=== PATIENT | female | born 1990 | race Caucasian/White ===

== ENCOUNTER → 2016-05-07 16:10 | Outpatient (CLI) | payer MEDICAID ==
[~2016-05-07 16:10] MED LIST: IBUPROFEN600 MG PO; PERCOCET 5-3251 TAB PO; PRENATAL COMPLE1 TAB PO
[2016-06-16 17:50] VITALS: BMI 40.7
== END | disposition home or self-care (01) ==
LOC: D.LDO 16:10
DX: Z34.83 Encounter for supervision of other normal pregnancy, third trimester (principal); Z3A.34 34 weeks gestation of pregnancy; R10.10 Upper abdominal pain, unspecified

== ENCOUNTER → 2016-06-13 12:55 | Outpatient (CLI) | payer MEDICAID ==
[2016-06-16 17:50] VITALS: BMI 40.7
== END | disposition home or self-care (01) ==
LOC: D.LDO 12:55
DX: Z34.93 Encounter for supervision of normal pregnancy, unspecified, third trimester (principal); Z3A.40 40 weeks gestation of pregnancy

== ENCOUNTER 2016-06-16 16:17 | Inpatient (IN) | payer MEDICAID ==
[~2016-06-16] VITALS: Ht 162.6 cm; Wt 107.5 kg
[2016-06-16 17:10] LABS: APPEARANCE HAZY (CLEAR); BILIRUBIN NEGATIVE (NEGATIVE); COLOR YELLOW (YELLOW); GLUCOSE NEGATIVE (NEGATIVE); KETONE NEGATIVE (NEGATIVE); LEUKOCYTE ESTERASE 1+ (NEGATIVE); NITRITE NEGATIVE (NEGATIVE); PROTEIN NEGATIVE (NEGATIVE); RED CELLS - URINE 0-5 /hpf (0-5); SPECIFIC GRAVITY 1.015 (1.005-1.020); UROBILINOGEN NORMAL (NORMAL)
[2016-06-16 17:11] LABS: BACTERIA MODERATE /hpf (NONE SEEN); MUCUS <1+ /lpf (NONE SEEN)
[2016-06-16] MEDS ORDERED: PRENATAL COMPLE1 TAB PO (17:49)
[2016-06-16 17:50] VITALS: BP 135/69; Ht 162.6 cm; Wt 107.5 kg
[2016-06-16 18:11] LABS: HEMATOCRIT 40.6 % (36.0-48.0); HEMOGLOBIN 13.8 g/dL (12-16); MCH 29.6 pg (26.0-34.0); MCV 86.9 fL (80.0-100.0); RBC 4.67 10x6/uL (4.00-5.40); WBC 10.5 10x3/uL (4.8-10.8)
--- NOTE | 2016-06-17 01:00 | NUR ---
RECEIVED PT VIA WC FROM L&D POST NVD PER DR HERRING, PT TO ROOM 1257, TRANSFERS SELF TO BED, PT ORIENTED TO ROOM, BED IN LOW POSITION, SIDE RAILS X 2, CALL LIGHT IN REACH, FAMILY AT BEDSIDE
[2016-06-17 01:30] VITALS: BP 126/78
--- NOTE | 2016-06-17 01:30 | NUR ---
VS OBTAINED, FF, ML, U/1, PT INST ON BETADINE AND WATER, DENIES NEEDS OR PAIN AT THIS TIME, BABY TO ROOM VIA OPEN CRIB CART PER NSY NURSE
--- NOTE | 2016-06-17 02:40 | NUR ---
PT RESTING WITH EYES CLOSED, RESP QUIET, NO DISTRESS NOTED, LEFT UNDISTURBED AT THIS TIME, FAMILY ASLEEP IN ROOM
--- NOTE | 2016-06-17 04:45 | NUR ---
PT RESTING WITH EYES CLOSED, RESP QUIET, NO DISTRESS NOTED, LEFT UNDISTURBED AT THIS TIME, FAMILY ASLEEP AT BEDSIDE
--- NOTE | 2016-06-17 05:30 | NUR ---
PT COTTON SAMPLER LIGHT, PT REPORTS VOIDING BY SELF WITH NO DIFFICULTY, STATES "I DIDN'T KNOW IF YOU NEEDED TO SEE MY PEE", INFORMED PT THAT I DID NOT,ONLY DOROTHY PAD AND INQUIRE ABOUT BLEEDING, PT REPORTS LIGHT BLEEDING AND HAD BEEN WEARING THE SAME PAD SINCE SLEEPING, PT DENIES ANY NEED FOR PAIN MED OR NEEDS AT THIS TIME
--- NOTE | 2016-06-17 07:00 | NUR ---
SHIFT REPORT TO DAY SHIFT
--- NOTE | 2016-06-17 07:40 | OP ---
PATIENT NAME: HAROON WILKERSON MEDICAL RECORD: [id number] :91 LOCATION:[facility] [address] ADMISSION DATE:06/16/16 SURGEON: MELANIE HERRING MD DATE OF OPERATION: 06/16/2016 Delivery Note Spontaneous vaginal delivery of male weighing 7 pounds 0 ounces, 9 and 9 Apgars. No episiotomy. First degree labial laceration not requiring any sutures. Spontaneous delivery of intact-appearing placenta. ESTIMATED BLOOD LOSS: 400 cc. ANESTHESIA: Epidural. COMPLICATIONS: None. TRANSINT:[id number] Voice Confirmation ID: [id number] DOCUMENT ID: [id number] MELANIE HERRING MD at 0740 CC: [id number] DICTATION DATE: 06/16/162154 FIRE SYSTEMS INSPECTOR: 06/17/16 0059 ADM IN [place] [id number] [place] [id number]
--- NOTE | 2016-06-17 07:45 | NUR ---
PT SITTING IN BED. FOB AT BEDSIDE. ASSESSMENT WAS PERFORMED AND DOCUMENTED. S/R UP X 2, BED IN LOWEST POSITION. CALL LIGHT WITHIN REACH. STATES NO FURTHER NEEDS AT THIS TIME. WILL CONTINUE TO MONITOR.
[2016-06-17 07:50] LABS: HEMATOCRIT 33.5 % (36.0-48.0); HEMOGLOBIN 11.3 g/dL (12-16); MCH 29.7 pg (26.0-34.0); MCHC 33.7 g/dL (31.0-37.0); MCV 87.9 fL (80.0-100.0); RBC 3.81 10x6/uL (4.00-5.40); RDW 14.2 % (11.5-14.5); WBC 12.1 10x3/uL (4.8-10.8)
[2016-06-17 08:05] VITALS: BP 127/78
--- NOTE | 2016-06-17 08:45 | NUR ---
PT SITTING IN BED NURSING . FOB AT BEDSIDE. STATES NO NEEDS AT THIS TIME.
--- NOTE | 2016-06-17 09:15 | NUR ---
PT SITTING IN BED WITH INFANT AT BEDSIDE IN OPEN AIR CRIB. PROVIDED FRESH ICE, JUICE AND ICEWATER. STATES PAIN 0 ON NUMERIC SCALE. STATES THAT THERE ARE ONLY "SLIGHT CRAMPS" RIGHT NOW. STATES NO FURTHER NEEDS.
[2016-06-17] MEDS ORDERED: IBUPROFEN600 MG PO (10:03)
[2016-06-17] MEDS ORDERED: PERCOCET 5-3251 TAB PO (10:03)
--- NOTE | 2016-06-17 10:33 | NUR ---
PT SITTING IN BED WITH IN OPEN AIR CRIB AT BEDSIDE. TAUGHT ABOUT KEEPING FUNDUS FIRM BY MASSAGING. DC'd S/L TIP INTACT TOLERATED WITH NO PROBLEMS. DISCUSSED ROOMING IN WITH THE CHANCE OF ROOM CHANGE. CHE GAVE PRESCRIPTIONS AND EXPLAINED THE IMPORTANCE OF GETTING THEM FILLED BEFORE DISCHARGING TO ROOM IN. STATES NO NEEDS AT THIS TIME. WILL CONTINUE TO MONITOR.
--- NOTE | 2016-06-17 12:09 | NUR ---
PT EATING. FAMILY AT BEDSIDE. STATES NO NEEDS AT THIS TIME. WILL CONTINUE TO MONITOR.
--- NOTE | 2016-06-17 14:10 | NUR ---
PT SITTING IN BED. FOB HAS RETURNED WITH THE PRESCRIPTIONS FOR PT TO ROOM IN. PT STATES THAT SHE WOULD LIKE TO GET UP AND WALK AROUND WHEN SHE GETS SETTLED RM 1217. STATES PAIN 0 ON NUMERIC SCALE AND NO NEED FOR PAIN MEDICATIONS. WILL CONTINUE TO MONITOR.
--- NOTE | 2016-06-17 15:29 | NUR ---
CM spoke with nurse Madelin Lyon regarding Smoking Cessation information. Madelin stated nursing would provide patient with this information. CM met with patient and provided requested written information on Living Will / Advance Directives. Informed patient that nursing would provide her with written information on Smoking Cessation. Patient voiced understanding of all information provided. Denied any other needs at this time. CM will continue to follow and assist as needed with DC planning / needs.
--- NOTE | 2016-06-17 16:00 | NUR ---
PT SITTING IN BED WITH INFANT. FOB AND SYBLING EATING OUT TO EAT. SPOKE OF CESSATION OF SMOKING INFORMATION. WILL PROVIDE.
--- NOTE | 2016-06-17 16:30 | NUR ---
PATIENT IS AWARE THAT SHE WILL BE DISCHARGED FROM THE HOSPITAL TODAY BUT WILL BE ROOMING IN. SHE UNDERSTANDS THAT SHE WILL BE MOVED TO ANOTHER ROOM WHERE SHE CAN STAY UNTIL HER INFANT IS RELEASED. SHE DENIES HEAVY BLEEDING, PASSING CLOTS AND UNCONTROLLED PAIN.
--- NOTE | 2016-06-17 16:30 | NUR ---
EMILY IS AWARE THAT SHE WILL BE DISCHARGING HOME TODAY. SHE IS AWARE THAT SHE WILL BE ROOMING IN AND WILL BE MOVED TO ANOTHER ROOM WHERE SHE CAN STAY LONG HER IS INPATIENT. SHE DENIES HEAVY BLEEDING, PASSING CLOTS, AND UNCONTROLLED PAIN.
--- NOTE | 2016-06-17 18:05 | NUR ---
DISCHARGE PAPERS WERE GONE OVER WITH PT AND . STATES UNDERSTANDING. WALKED PT OVER TO ROOM 1217 WHERE SHE WILL BE ROOMING IN.
[2016-06-18 06:13] LABS: RAPID PLASMA REAGIN Non Reactive (Non Reactive)
--- NOTE | 2016-07-04 07:28 | DS ---
PATIENT:HAROON WILKERSON :[birth year] MEDICAL RECORD: [id number] DISCHARGE SUMMARY ADMISSION DATE: 06/16/16 DISCHARGE DATE: 06/17/16 This patient delivered spontaneously vaginally on June 16, male infant weighing 7 pounds, 0 ounces, 9 and 9 Apgars, no episiotomy. First degree labial laceration, not requiring sutures and spontaneous delivery of intact-appearing placenta. ESTIMATED BLOOD LOSS: 400 cc. The patient did well and was discharged home, tolerating regular diet, ambulating without problems on June 17, to return to the office for followup in 4 weeks. TRANSINT:[id number] Voice Confirmation ID: [id number] DOCUMENT ID: [id number] MELANIE HERRING MD at 0728 CC: [id number] DICTATION DATE: 07/03/16 1105 SIGNWRITER: 07/03/16 2104 DIS IN 06/17/16 [place] [address] [place] [address]
== END 2016-06-17 18:05 | disposition home or self-care (01) | DRG 775 ==
LOC: D.LDO 16:17 → D.LD 16:56
PROVIDERS: ADMIT Obstetrics & Gynecology
PROC: 10E0XZZ Delivery of Products of Conception, External Approach (ICD-10-PCS; principal; 2016-06-16)
PROC: 0HQ9XZZ Repair Perineum Skin, External Approach (ICD-10-PCS; 2016-06-16)
DX: O99.824 Streptococcus B carrier state complicating childbirth (principal); Z3A.40 40 weeks gestation of pregnancy; Z37.0 Single live birth; O70.0 First degree perineal laceration during delivery; O99.334 Smoking (tobacco) complicating childbirth

== ENCOUNTER 2016-08-30 07:41 | Emergency (ER) | payer MEDICAID ==
[2016-06-16 17:50] VITALS: BMI 40.7
[2016-08-30 08:23] LABS: BASOPHILS 0.1 % (0-2); EOSINOPHILS 0.2 % (0-7); HEMATOCRIT 44.1 % (36.0-48.0); HEMOGLOBIN 14.7 g/dL (12-16); IMMATURE GRANULOCYTES 0.1 % (0-5); LYMPHOCYTES 13.8 % (15-50); MCH 29.3 pg (26.0-34.0); MCHC 33.3 g/dL (31.0-37.0); MCV 87.8 fL (80.0-100.0); MEAN PLATELET VOLUME 10.1 fL (7.4-10.4); MONOCYTES 3.2 % (2-11); NEUTROPHILS 82.6 % (40-80); RBC 5.02 10x6/uL (4.00-5.40); RDW 12.8 % (11.5-14.5); WBC 9.5 10x3/uL (4.8-10.8)
[2016-08-30 08:28] LABS: PLATELET COUNT 247 10x3/uL (130-400)
[2016-08-30 08:36] LABS: ALBUMIN 3.5 g/dL (3.4-5.0); ALKALINE PHOSPHATASE 78 U/L (46-116); ALT (SGPT) 121 U/L (10-68); CALC OSMOLALITY 280 mosm/kg (275-300); CALCIUM 8.9 mg/dL (8.5-10.1); CARBON DIOXIDE 27.7 mmol/L (21.0-32.0); CHLORIDE - SERUM 107 mmol/L (98-107); CREATININE - SERUM 0.9 mg/dL (0.6-1.3); GLUCOSE 115 mg/dL (74-106); POTASSIUM - SERUM 3.9 mmol/L (3.5-5.1); PROTEIN - SERUM 7.1 g/dL (6.4-8.2); SODIUM 141 mmol/L (136-145); UREA NITROGEN 9 mg/dL (7-18); eGFR NON AFRICAN AMERICAN 81 mL/min (90-120)
[2016-08-30 09:02] LABS: APPEARANCE SLT CLOUDY (CLEAR); BACTERIA MANY /hpf (NONE SEEN); BILIRUBIN NEGATIVE (NEGATIVE); COLOR YELLOW (YELLOW); GLUCOSE NEGATIVE (NEGATIVE); KETONE NEGATIVE (NEGATIVE); LEUKOCYTE ESTERASE 2+ (NEGATIVE); MUCUS <1+ /lpf (NONE SEEN); NITRITE NEGATIVE (NEGATIVE); PROTEIN NEGATIVE (NEGATIVE); RED CELLS - URINE RARE /hpf (0-5); SPECIFIC GRAVITY 1.015 (1.005-1.020); UROBILINOGEN NORMAL (NORMAL); WHITE CELLS - URINE 0-5 /hpf (0-5)
[2016-08-30 09:03] LABS: HCG URINE NEGATIVE (NEGATIVE)
[2016-08-31] MEDS ORDERED: ZOFRAN4 MG PO (00:01)
== END 2016-08-30 09:59 | disposition home or self-care (01) ==
LOC: D.ER 07:41
PROVIDERS: Emergency Medicine
DX: R10.9 Unspecified abdominal pain (principal); R11.10 Vomiting, unspecified

== ENCOUNTER 2016-08-30 16:06 | Observation (INO) | payer MEDICAID ==
[~2016-08-30] VITALS: Ht 160 cm; Wt 95.3 kg
[2016-08-31] MEDS ORDERED: ZOFRAN4 MG PO (00:01)
[2016-08-31 00:04] VITALS: BP 101/56; BMI 37.2
--- NOTE | 2016-08-31 00:16 | NUR ---
RCVD PT VIA W/C FROM ER. PT LYING ON BACK WITH HOB 30 DEGREES. PT DENIES PAIN AT THIS TIME. PT AAOX3. PERRLA. VSS, HR-RRR, PPP, NO EDEMA TO EXTREMIES X4. BOWEL SOUNDS ACTIVE X4 WITH TENDERNESS TO RUQ UPON LIGHT PALPATION. BREATH SOUNDS EVEN AND UNLABORED X2. 20G PIV TO RT WRIST WITH NS RUNNING @ 100ML/HR.ORDERS FOR DILAUDID SURVEILLANCE SENSOR OPERATOR AND ZOFRAN DISCUSSED WITH PT. ADV PT TO LET ME KNOW WHEN SHE STARTS FEELING PAIN AGAIN IN ORDER TO INITIATE SURVEILLANCE SENSOR OPERATOR. PT VERBALIZED UNDERSTANDING. EDU PT ON CLEAR LIQUID DIET. CHICKEN BROTH PROVIDED PER PT REQUEST. ADMIT ASSESSMENT IN [facility] COMPLETED AT THIS TIME. PT DENIES FURTHER NEEDS AND RATES PAIN 0/10 AT THIS TIME. BED LOW, WHEELS LOCKED, CL IN REACH, SIDE RAILS UP X2.
--- NOTE | 2016-08-31 02:23 | NUR ---
CURRENT NS INFUSION COMPLETE. PIV SL AT THIS TIME. PT DENIES PAIN OR NEEDS. ADV PT OF TRANSFER TO WS WITHIN THE NEXT HR. PT VERBALIZED UNDERSTANDING AND IS AGREEABLE. PT DENIES FURTHER NEEDS AT THIS TIME.
--- NOTE | 2016-08-31 03:15 | NUR ---
PT AMB TO ROOM 1217. DENIES PAIN OR NEEDS. ORIENTED TO ROOM. ADV TO CALL ON CL IF PAIN INCREASES FOR AUTOMATIC GLUING MACHINE OPERATOR. PT VERBALIZED UNDERSTANDING.
--- NOTE | 2016-08-31 03:30 | NUR ---
CHILD AND YOUTH PROGRAM ASSISTANT CALLED TO BRING NEXT DOSE OF ZOSYN DUE AT 0500.
--- NOTE | 2016-08-31 07:30 | NUR ---
PT RECEIVED THIS AM LYING IN BED. PT OFFERS NO COMPLAINTS. SHE STATES HER PAIN LEVEL IS ABOUT A 4. SHE HAS A SALINE LOCK TO HER R WRIST WHICH IS PATENT. GEN- AWAKE AND ALERT. LUNGS- CLEAR. HEART- RRR. ABD- SOFT WITH TENDERNESS RUQ. BS + EXT- NO EDEMA. BED IS LOW. SIDE RAILS UP X 2 AND CALL LIGHT IN REACH.
[2016-08-31 07:41] VITALS: BP 99/44
--- NOTE | 2016-08-31 10:01 | NUR ---
PT IS RESTING IN BED. STATES HER PAIN IS STILL ABOUT A 4. DOES NOT WANT PAIN MED AT THIS TIME. HER IV WAS INITIATED AGAIN @75 CC/HR 0.9 % NS. TO HER R WRIST. IV PATENT.
[2016-08-31 10:25] VITALS: Ht 160 cm; Wt 95.3 kg
--- NOTE | 2016-08-31 11:15 | NUR ---
PT IS UP TO TAKE SHOWER. IV WAS SALINE LOCKED AND COVERED WITH A GLOVE AND TAPED. LINENS CHANGED.
--- NOTE | 2016-08-31 11:22 | NUR ---
HER MOTHER STATES THAT PT WANTS TO KEEP HER 2 MONTH OLD SON WITH HER TONIGHT. I TOLD HER THAT THIS WAS NOT ALLOWED DUE TO HOSPITAL POLICY.
--- NOTE | 2016-08-31 11:37 | NUR ---
PT IS OUT OF SHOWER. BACK TO BED. BED IS LOW, SIDE RAILS UP X 2 AND CALL LIGHT IN REACH. SHE IS HOLDING HER 2 MO OLD BABY.
--- NOTE | 2016-08-31 13:01 | NUR ---
PT IS SITTING UP IN BED HOLDING HER 2 MO OLD BABY. SHE OFFERS NO COMPLAINTS. BED IS LOW, SIDE RAILS UP X 2 AND CALL LIGHT IN REACH.
[2016-08-31 13:54] LABS: BASOPHILS 0.2 % (0-2); HEMOGLOBIN 12.9 g/dL (12-16); IMMATURE GRANULOCYTES 0.2 % (0-5); LYMPHOCYTES 53.2 % (15-50); MCH 29.1 pg (26.0-34.0); MCHC 32.3 g/dL (31.0-37.0); MEAN PLATELET VOLUME 10.7 fL (7.4-10.4); MONOCYTES 7.1 % (2-11); NEUTROPHILS 37.3 % (40-80); PLATELET COUNT 211 10x3/uL (130-400); RBC 4.44 10x6/uL (4.00-5.40); RDW 13.3 % (11.5-14.5)
[2016-08-31 14:05] LABS: MCV 90.1 fL (80.0-100.0); WBC 4.9 10x3/uL (4.8-10.8)
[2016-08-31 14:30] LABS: ANION GAP 13.7 mmol/L (8-16); BILIRUBIN - TOTAL 0.28 mg/dL (0.2-1.3); CALCIUM 8.3 mg/dL (8.5-10.1); POTASSIUM - SERUM 3.7 mmol/L (3.5-5.1); PROTEIN - SERUM 5.9 g/dL (6.4-8.2)
--- NOTE | 2016-08-31 14:30 | NUR ---
PT OFFERS NO COMPLAINTS. STILL HOLDING HER BABY. BED IS LOW. SIDE RAILS UP X 2 AND CALL LIGHT IN REACH.
--- NOTE | 2016-08-31 16:15 | NUR ---
ANESTHESIA HERE TO SEE PATIENT FOR PRE-OP WORKUP.
--- NOTE | 2016-08-31 17:05 | NUR ---
GOT SURGICAL CONSENTS SIGNED. PT GIVEN SURGERY PAMPHLET.
--- NOTE | 2016-08-31 18:09 | NUR ---
PT IS RESTING IN BED OFFERS NO COMPLAINTS. IV PATENT R WRIST, BED IS LOW, SIDE RAILS UP X 2 AND CALL LIGHT IN REACH.
[2016-08-31 20:55] VITALS: BP 95/46
--- NOTE | 2016-08-31 20:55 | NUR ---
AWAKE DURIN INITIAL ROUNDS. INTRODUCED SELF. V/S TAKEN. ASSESSMENT DONE. STATUS CHOLECYSTITIS/2mos PP. WITH IVF NS TO R WRIST @ 75cc/hr. IV SITE OK. FOR LAP [facility] TOMORROW. CONSENTS SIGNED ON DAY SHIFT. NPO AFTER MIDNIGHT.
--- NOTE | 2016-08-31 22:06 | NUR ---
NEW IV BAG HUNG. ZOSYN IVPB INFUSING. NO ADVERSE REACTION NOTED.
--- NOTE | 2016-09-01 00:30 | NUR ---
EYES CLOSED. LEFT UNDISTURBED.
--- NOTE | 2016-09-01 02:05 | NUR ---
APPEARS TO BE ASLEEP.
[2016-09-01 04:07] VITALS: BP 102/67
--- NOTE | 2016-09-01 04:07 | NUR ---
ROUNDS MADE. PT SITTING UPRIGHT IN BED TALKING TO PHONE WITH SPOUSE. VSS. DENIES NEEDS AT THIS TIME. BED IN LOW POSITION UPPER SIDE RAISED X2. CL AND PHONE WITHIN REACH.
--- NOTE | 2016-09-01 05:29 | NUR ---
ZOSYN IVPB INFUSING. NO ADVERSE REACTION NOTED. SLEPT FAIRLY WELL DURING THE NIGHT. CONTINUING PLAN OF CARE.
--- NOTE | 2016-09-01 06:19 | NUR ---
REMAINED NPO AFTER MIDNIGHT. SLEPT FAIRLY WELL DURING THE NIGHT. CONTINUING PLAN OF CARE.
[2016-09-01 07:35] VITALS: BP 115/59
[2016-09-01 11:55] VITALS: BP 120/74
--- NOTE | 2016-09-01 13:23 | NUR ---
RECEIVED FROM SURGERY. AWAKE AND ORIENTED. ASKING WHEN SHE MAY BE RELEASED. EXPLAINED THAT SHE WILL NEED TO HOLD DOWN HER CLEAR LIQUID AND BE ABLE TO VOID BEFORE BEING RELEASED. BED IN LOWEST POSITION, S/R UP X 2, PHONE AND CALL LIGHT WITHIN REACH.
--- NOTE | 2016-09-01 13:32 | NUR ---
PT SITTING IN BED WITH INFANT TO CHEST. GENTLY ROCKING AND SPEAKING TO INFANT. EXPLAINED PHYSICIAN WOULD BE BY TO SEE HER AND PROVIDE HER WITH PRESCRIPTIONS TO GO HOME. STATES UNDERSTANDING AND RECEIVES NEWS WELL. STATES NO NEEDS AT THIS TIME.
[2016-09-01 13:46] VITALS: BP 117/70
--- NOTE | 2016-09-01 14:30 | NUR ---
PT UP TO VOID. NO DIFFICULTIES WITH SUCCESSFUL VOID. HAS CONSUMED 75% OF CLEAR LIQUID DIET. STATES NO NEEDS AT THIS TIME AND HAS MET THE PHYSICIAN STATED REQUIREMENTS TO BE DISCHARGED THIS AFTERNOON.
--- NOTE | 2016-09-01 15:52 | NUR ---
Patient Name: HAROON WILKERSON Admission Status: ER Accout number: [id number] Admission Date: 08-30-2016 : 1990 Admission Diagnosis: Attending: DEANGELO Current LOS: 2 Anticipated DC Date: 09-01-2016 Planned Disposition: Home Primary Insurance: [place] Discharge Planning Comments: CM met with patient, Viakhu-fh-Yxh Toma Ortiz also present, to assess discharge planning/needs. Patient and family state discharge plan is to return home with patients spouse, step daughter and son. States home environment is safe. Stated that Binewk-lt-Sgg, Toma Ortiz [phone], will drive her home on discharge. Denies any discharge needs at this time. CM will follow and assist as needed with discharge planning/needs. Transcribing Machine Operator: Eboni Oakes Is the patient Alert and Oriented? Yes * How many steps to enter\exit or inside your home? 0 * PCP Dr Reynolds * Pharmacy [facility] * Preadmission Environment Home with Family * ADLs Independent * Equipment Cane * List name and contact numbers for known caregivers / representatives who currently or will assist patient after discharge: Spouse: John Ortiz [phone] Oeiiid-hk-Kym: Toma Ortiz [phone] Mother: Silvina Wilkerson [phone] * Community resources currently utilized None * Additional services required to return to the preadmission environment? No * Can the patient safely return to the preadmission environment? Yes * Has this patient been hospitalized within the prior 30 days at any hospital? No
[2016-09-01] MEDS ORDERED: HYDROCODONE-APA1 TAB PO (16:46)
--- NOTE | 2016-09-01 17:00 | NUR ---
D/C INSTRUCTIONS GIVEN AND EXPLAINED TO PT. QUESTIONS ANSWERED. RX X1 TO PT. COPY ON CHART. TO CAR VIA W/C DRIVEN HOME BY "[id number]"
--- NOTE | 2016-09-02 14:34 | OP ---
PATIENT NAME: HAROON WILKERSON MEDICAL RECORD: [id number] :[birth year] LOCATION:[facility] [address]1217 ADMISSION DATE:08/30/16 SURGEON: ELOY JOHNSON MD DATE OF OPERATION: 09/01/2016 PREOPERATIVE DIAGNOSIS: Acute cholecystitis. POSTOPERATIVE DIAGNOSIS: Acute cholecystitis. PROCEDURE: Laparoscopic cholecystectomy. SURGEON: Eloy Johnson MD REPORT OF PROCEDURE: The patient's abdomen was prepped and draped in sterile fashion. A cutdown was made on the superior aspect of the umbilicus. 0 Vicryls were placed in the fascia bilaterally and the fascia was incised with a 15-blade. I then bluntly entered the peritoneal cavity and placed a 12-mm Alicia port. Under direct visualization, a 5 mm trocar was placed in the epigastrium and 2 more 5-mm trocars were placed in the right subcostal region. The gallbladder was grasped and elevated. There was some inflammatory edema to the gallbladder, but there were no adhesions present. The liver itself appeared to be normal with no signs of any inflammatory changes. The cystic artery and cystic duct were dissected free and these were clipped proximally and distally and ligated in standard fashion. The gallbladder was then taken off the liver bed using electrocautery and placed into the right upper quadrant. Any bleeding from the liver bed was then treated with electrocautery. We irrigated out the right upper quadrant and assured there was no sign of any active bleeding or bile leakage. At this point, the ports and insufflation were then removed and the gallbladder was taken out through the umbilicus. The umbilical fascia was closed with interrupted 0 Vicryls times 3. The wounds were irrigated out with normal saline and infused with 10 mL of 0.25% Marcaine with epinephrine. The skin incisions were all closed with subcutaneous 5-0 Monocryl and dressed appropriately. COMPLICATIONS: None. CONDITION: Stable. ANESTHESIA: General endotracheal and local. BLOOD LOSS: Minimal. TRANSINT:[id number] Voice Confirmation ID: [id number] DOCUMENT ID: [id number] ELOY JOHNSON MD at 1434 CC: [id number] DICTATION DATE: 09/01/16 1248 SIGN WIRER: 09/02/16 0100 DIS IN 09/01/16 [facility] [address] [place] [address]
== END 2016-09-01 17:00 | disposition home or self-care (01) ==
LOC: D.ER 16:06 → D.WS 22:41 → D.LD 22:41 → D.WS 08-31 03:16 → OBSVTIME 09-01 14:58 → D.WS 09-01 17:00
PROVIDERS: ADMIT Surgery
DX: K80.00 Calculus of gallbladder with acute cholecystitis without obstruction (principal); F17.200 Nicotine dependence, unspecified, uncomplicated

== ENCOUNTER 2016-09-25 00:10 | Observation (INO) | payer MEDICAID ==
[~2016-09-25] VITALS: Ht 160 cm; Wt 90.5 kg
--- NOTE | ~2016-09-25 | HP ---
PATIENT: HAROON WILKERSON MEDICAL RECORD: [id number] ACCOUNT: [id number] LOCATION:[address] : [birth year] ADMISSION DATE: 09/25/16 HISTORY AND PHYSICAL EXAMINATION History and Physical Addendum CHIEF COMPLAINT: Pain. HISTORY OF PRESENT ILLNESS: The patient recently underwent a laparoscopic cholecystectomy by Dr. Lorenz. She states that she is having abdominal pain. It radiates around to the back. It is just like the pain that she had prior to her operation. I have reviewed the PIPIDA scan images. I have reviewed the PIPIDA scan report. I have reviewed the ultrasound report and reviewed the ultrasound images. They are normal for a post-cholecystectomy state. She has not been running any fever. Her abdomen is nontender. I was going to order a CT scan on her and she said that she wanted to actually go home and she could be worked up as an outpatient, so I do think she is hurting too much. Symptoms have been constant. Palpation aggravates. Nothing alleviates. Symptoms are moderate in intensity. PHYSICAL EXAMINATION: GENERAL: The patient does not appear acutely ill. She does not appear chronically ill. VITAL SIGNS: Reviewed. HEAD: External ears appear normal. EYES: Extraocular movements are intact. NECK: Trachea is midline. CHEST: No intercostal retractions. PULMONARY: Nonlabored, no stridor. ABDOMEN: Nontender. EXTREMITIES: No peripheral cyanosis. INTEGUMENT: No rash, no ulcerations. PSYCHIATRIC: Normal affect. IMPRESSION: Abdominal pain of uncertain etiology. PLAN: Workup as an outpatient. Follow up with Dr. Lorenz in his office. TRANSINT:[id number] Voice Confirmation ID: [id number] DOCUMENT ID: [id number] FRANCIA VO MD CC: [id number] DICTATION DATE: 09/25/16 165 DIRECTOR POST: 09/25/16 1842 DIS IN 09/25/16 [facility] [address] [place] [address]
[~2016-09-25 00:10] MED LIST changes: +HYDROCODONE-APA1 TAB PO; +ZOFRAN4 MG PO
[2016-09-25 00:44] LABS: BASOPHILS 0.2 % (0-2); EOSINOPHILS 1.1 % (0-7); HEMOGLOBIN 14.8 g/dL (12-16); IMMATURE GRANULOCYTES 0.1 % (0-5); LYMPHOCYTES 32.7 % (15-50); MCH 28.7 pg (26.0-34.0); MCHC 32.9 g/dL (31.0-37.0); MCV 87.2 fL (80.0-100.0); MEAN PLATELET VOLUME 10.3 fL (7.4-10.4); MONOCYTES 9.8 % (2-11); NEUTROPHILS 56.1 % (40-80); PLATELET COUNT 243 10x3/uL (130-400); RBC 5.16 10x6/uL (4.00-5.40); RDW 13.3 % (11.5-14.5); WBC 8.6 10x3/uL (4.8-10.8)
[2016-09-25 00:58] LABS: ALBUMIN 3.8 g/dL (3.4-5.0); ALKALINE PHOSPHATASE 219 U/L (46-116); ALT (SGPT) 460 U/L (10-68); AMYLASE - SERUM 47 U/L (25-115); CALC OSMOLALITY 282 mosm/kg (275-300); CALCIUM 9.3 mg/dL (8.5-10.1); CARBON DIOXIDE 25.4 mmol/L (21.0-32.0); CHLORIDE - SERUM 105 mmol/L (98-107); CREATININE - SERUM 0.9 mg/dL (0.6-1.3); GLUCOSE 124 mg/dL (74-106); LIPASE 345 U/L (73-393); POTASSIUM - SERUM 3.9 mmol/L (3.5-5.1); PROTEIN - SERUM 7.5 g/dL (6.4-8.2); SODIUM 142 mmol/L (136-145); UREA NITROGEN 11 mg/dL (7-18); eGFR NON AFRICAN AMERICAN 81 mL/min (90-120)
[2016-09-25 03:17] LABS: APPEARANCE CLOUDY (CLEAR); BACTERIA MODERATE /hpf (NONE SEEN); BILIRUBIN NEGATIVE (NEGATIVE); COLOR YELLOW (YELLOW); GLUCOSE NEGATIVE (NEGATIVE); KETONE NEGATIVE (NEGATIVE); LEUKOCYTE ESTERASE 2+ (NEGATIVE); NITRITE NEGATIVE (NEGATIVE); PROTEIN TRACE mg/dL (NEGATIVE); RED CELLS - URINE 0-5 /hpf (0-5); UROBILINOGEN NORMAL (NORMAL)
[2016-09-25 04:00] VITALS: BP 117/82
--- NOTE | 2016-09-25 05:07 | NUR ---
REC FROM ER VIA WC. AMBULATED TO BED WITH STEADY GAIT. RATES PAIN LEVEL OF ABDOMEN AT AT 2 ON 0-10 NUMBER SCALE. DESCRIBED SQUEEZING PRESSURE PAIN. IV IS IN R AC WITH NS INFUSING AT 100ML/HR STARTED IN ER. DENIES NAUSEA OR ANY NEEDS. INFORMED OF NPO STATUS FOR PIPIDA SCAN. ORIENTED TO ROOM AND CALL LIGHT. HER AND 3 MONTH OLD BABY ARE GOING HOME.
[2016-09-25 06:40] VITALS: BP 107/65; Ht 160 cm; Wt 90.5 kg
--- NOTE | 2016-09-25 07:50 | NUR ---
0715-ROUNDING DONE WITH PATIENT APPEARING ASLEEP IN BED. ASLEEP IN CHAIR AND A BABY SEEN ALSEEP IN THE STROLLER. PATIENT IS NPO AT PRESENT TIME. ON ROOM AIR. WILL MONITOR.
[2016-09-25 08:00] VITALS: BP 122/73
[2016-09-25 10:28] LABS: HCG SERUM NEGATIVE (NEGATIVE)
--- NOTE | 2016-09-25 10:46 | NUR ---
1040-TO RADIOLOGY VIA WHEELCHAIR.
[2016-09-25 15:56] VITALS: BP 101/58
--- NOTE | 2016-09-25 16:47 | NUR ---
RECEIVED CALL FROM DR VO WHO STATES THAT THE ULTRASOUND AND PIPIDA SCAN ARE NORMAL AND THAT HE WANTS TO HAVE A CT SCAN ORDERED FOR TOMORROW. PATIENT IS INFORMED OF THIS. THEY ASKED THAT I CALL DR VO THEY WANT TO GO HOME AND DO THE SCAN AN OUTPATIENT. PAGED DR VO AND AWAITING CALL BACK.
--- NOTE | 2016-09-25 16:50 | NUR ---
RECEVIED CALL BACK FROM DR CHAIDEZ WITH NEW ORDERS.
--- NOTE | 2016-09-25 18:07 | NUR ---
VERBAL AND WRITTEN DISCHARGE INSTRUCTIONS GIVEN TO PATIENT AND SPOUSE. SALINE LOCK REMOVED WITH CATH TIP INTACT. PATIENT WANTED TO AMBULATE OUT TO HER CARE WITH EHR AND I WENT WITH THEM.
== END 2016-09-25 18:08 | disposition home or self-care (01) ==
LOC: D.ER 00:10 → D.M2 03:52 → OBSVTIME 03:52 → D.M2 03:52
PROVIDERS: Emergency Medicine; Internal Medicine; ADMIT Surgery
DX: R10.9 Unspecified abdominal pain (principal); Z72.0 Tobacco use

== ENCOUNTER → 2016-09-27 07:13 | Outpatient (CLI) | payer MEDICAID | END | disposition home or self-care (01) | LOC: D.CT 07:13 | DX: R10.9 Unspecified abdominal pain (principal) ==

== ENCOUNTER → 2016-10-05 07:13 | Outpatient (CLI) | payer MEDICAID | END | disposition home or self-care (01) | LOC: D.MRI 07:13 | DX: R10.9 Unspecified abdominal pain (principal) ==